=== PATIENT | female | born 1955 | race Caucasian/White ===

== ENCOUNTER 2023-03-27 18:05 | Emergency (ER) | payer SELFPAY ==
[2023-03-27 18:05] VITALS: BP 170/87; PULSE 67; RESP 18; TEMP 36.5; O2SAT 100; BMI 24.0
--- NOTE | 2023-03-27 18:12 | CTR_ITS ---
PROCEDURE INFORMATION: Exam: CT Abdomen And Pelvis With Contrast Exam date and time: 03/27/2023 6:37 PM Age: 67 years old Clinical indication: Abdominal pain; Generalized; Additional info: Abd pain TECHNIQUE: Imaging protocol: Computed tomography of the abdomen and pelvis with contrast. Radiation optimization: All CT scans at this facility use at least one of these dose optimization techniques: automated exposure control; mA and/or kV adjustment per patient size (includes targeted exams where dose is matched to clinical indication); or iterative reconstruction. Contrast material: OMNI 350; Contrast volume: 100 ml; Contrast route: INTRAVENOUS (IV); REPORTING DATA: Count of CT and Cardiac NM exams in prior 12 months: This patient has received 0 known CTs and 0 known cardiac nuclear medicine studies in the 12 months prior to the current study. COMPARISON: No relevant prior studies available. RADIATION DOSE METRICS: Total DLP (mGy-cm): 368 FINDINGS: Lungs: Dependent atelectasis in the lungs bilaterally. Pleural spaces: No pleural effusion. Heart: Visualized portions of the heart are mildly enlarged. Mediastinal space: Extensive inflammatory changes involving the distal esophagus and proximal stomach. There is also a defect in the wall of the distal esophagus just above the gastroesophageal junction with mediastinal free air with an abscess surrounding the distal esophagus measuring 2.4 x 4.0 cm (series 3, image 4). Multiple foci of air are also seen throughout the abdomen as well as diffuse moderate to severe inflammatory changes and free fluid in the abdomen and pelvis, which may be secondary in nature from the esophageal wall perforation. Liver: Two hypodense foci in the liver that cannot be further characterized on the current examination. The larger measures 8.5 mm (series 3, image 18). Gallbladder and bile ducts: The gallbladder is unremarkable. No biliary ductal dilatation. Pancreas: The pancreas is unremarkable. No pancreatic ductal dilatation. Spleen: The spleen is unremarkable. Adrenal glands: The right and left adrenal glands are unremarkable. Kidneys and ureters: Subcentimeter hypodense foci in both right and left kidneys that are too small to characterize, however likely represent small cysts. The right and left ureters are unremarkable. Stomach and bowel: See Mediastinal space finding. Appendix: The appendix is visualized and is unremarkable. No findings to suggest acute appendicitis. Intraperitoneal space: See Mediastinal space finding. Vasculature: No evidence for aortic aneurysm or aortic dissection. Hepatic veins, portal veins, splenic vein, and SMV are patent. Lymph nodes: No lymphadenopathy. Urinary bladder: The bladder is unremarkable. Reproductive: The uterus is unremarkable. Simple cyst in the right ovary measuring 2.4 x 3.2 cm (series 3, image 59). Dominant follicle in the left ovary measuring 1.8 x 2.2 cm (series 3, image 64). Bones/joints: Degenerative changes in the spine, sacroiliac joints, and hips. Soft tissues: No acute abnormality in the extra-abdominal soft tissues. CT/CT abdomen pelvis w con* [id number] IMPRESSION: 1. Findings suspicious for extensive esophagitis and gastritis with an esophageal perforation in the wall of the distal esophagus just above the gastroesophageal junction. There is also a defect in the wall of the distal esophagus just above the gastroesophageal junction with mediastinal free air and an abscess surrounding the distal esophagus. Multiple foci of air are also seen throughout the abdomen as well as diffuse moderate to severe inflammatory changes and free fluid in the abdomen and pelvis, which may be secondary in nature from the esophageal wall perforation. 2. Two hypodense foci in the liver that cannot be further characterized on the current examination. In a low-risk patient, this is most likely to be benign and no further follow-up is recommended. In a high-risk patient, follow-up MRI in 3-6 months is recommended (or earlier if warranted by the patient's specific clinical circumstances). (Reference: Dennis) 3. Simple cyst in the right ovary measuring 2.4 x 3.2 cm. 4. Dominant follicle in the left ovary measuring 1.8 x 2.2 cm. 5. Incidental/nonacute findings are listed in the report. COMMENTS: Consistent with the [employer]'s Incidental Findings Committee white paper (J Am Erich Radiol 2018): Any incidental renal lesion less than 1 cm or classified as too small to characterize, or any incidental cystic renal lesion characterized as simple-appearing, is likely benign. No follow-up imaging is recommended for these lesions per consensus recommendations based on imaging criteria. REFERENCES: Dennis JERNIGAN, et al. Management of Incidental Liver Lesions on CT: A White Paper of the ACR Incidental Findings Committee. J Am Erich Radiol. 2017;14(11):0586-6702.
--- NOTE | 2023-03-27 18:13 | W.ED.ABDPA2 ---
HPI - Abdominal Pain General: Chief Complaint: Abdominal Pain Stated Complaint: Abd pain N/V Time Seen by Provider: 03/27/23 18:08 Source: patient Mode of arrival: ambulatory Limitations: no limitations History of Present Illness: 67-year-old female states she has been having lower abdominal pain since 5:00 this morning states its worsened throughout the day states pain is sharp in nature she received 100 of fentanyl along with 80 Zofran in route states her pain is still a 7 out of 10 no history of abdominal surgeries denies any vomiting denies any diarrhea is denies any fevers. Associated Symptoms: Denies chills, diarrhea, dysuria, fever(s), nausea and vomiting Review of Systems Const: Denies: fever(s) or chills ENMT: Denies: throat pain or dental pain Card: Denies: chest pain Resp: Denies: dyspnea GI: Reports: abdominal pain; Denies: nausea, vomiting or diarrhea : Denies: dysuria Musc: Denies: neck pain or back pain Skin/Breast: Denies: rash Neuro: Denies: headache(s) Physical Exam Const: COMMON NORMALS: patient oriented x3 GENERAL APPEARANCE: in distress HENMT: COMMON NORMALS: normocephalic and atraumatic HEAD & SCALP: normocephalic and atraumatic Neck/C-Spine: COMMON NORMALS: full ROM and supple Chest: COMMONS NORMALS: normal inspection of the chest Resp: COMMON NORMALS: normal respiratory effort Cardio: COMMON NORMALS: regular rate, regular rhythm and No murmurs present (Cardio) RATE: regular rate RHYTHM: regular rhythm GI: COMMON NORMALS: Normal to inspection, nondistended, normoactive bowel sounds present and no masses PALPATION: Yes Tenderness to palpation present (GI) (diffuse) and Yes Rigid due to palpation Extremity: COMMON NORMALS: normal to inspection Neuro: COMMON NORMALS: patient oriented x3, moves all extremities and no focal motor deficits Psych: COMMON NORMALS: mental status grossly normal, Normal thought process present and cooperative THOUGHT PROCESS: Normal thought process present Skin: COMMON NORMALS: no rashes or lesions noted and no wounds GENERAL SKIN EXAM: no rashes or lesions noted Course Vital Signs: Vital signs: Vital Signs Temperature 97.7 F 03/27/23 18:05 Pulse Rate 67 03/27/23 18:05 Respiratory Rate 15 03/27/23 21:02 Blood Pressure 159/82 03/27/23 21:02 Pulse Oximetry 97 03/27/23 21:02 Oxygen Delivery Me thod Room Air 03/27/23 21:02 MDM - Abdominal Pain Medical Decision Making Patient presents here with abdominal pain CT shows esophageal perforation did start patient on antibiotics [facility] surgeon who recommended a high level care did call [facility] patient is excepted there and will transfer there at this time. Medical Records I reviewed the patient's medical records. Lab Data I reviewed the patient's lab results. 03/27/23 18:30 03/27/23 18:30 Labs/Radiology: Radiology Impressions Abdomen/Pelvis CT 03/27/23 18:12 IMPRESSION: 1. Findings suspicious for extensive esophagitis and gastritis with an esophageal perforation in the wall of the distal esophagus just above the gastroesophageal junction. There is also a defect in the wall of the distal esophagus just above the gastroesophageal junction with mediastinal free air and an abscess surrounding the distal esophagus. Multiple foci of air are also seen throughout the abdomen as well as diffuse moderate to severe inflammatory changes and free fluid in the abdomen and pelvis, which may be secondary in nature from the esophageal wall perforation. 2. Two hypodense foci in the liver that cannot be further characterized on the current examination. In a low-risk patient, this is most likely to be benign and no further follow-up is recommended. In a high-risk patient, follow-up MRI in 3-6 months is recommended (or earlier if warranted by the patient's specific clinical circumstances). (Reference: Dennis) 3. Simple cyst in the right ovary measuring 2.4 x 3.2 cm. 4. Dominant follicle in the left ovary measuring 1.8 x 2.2 cm. 5. Incidental/nonacute findings are listed in the report. COMMENTS: Consistent with the [employer]'s Incidental Findings Committee white paper (J Am Erich Radiol 2018): Any incidental renal lesion less than 1 cm or classified as too small to characterize, or any incidental cystic renal lesion characterized as simple-appearing, is likely benign. No follow-up imaging is recommended for these lesions per consensus recommendations based on imaging criteria. REFERENCES: Dennis JERNIGAN, et al. Management of Incidental Liver Lesions on CT: A White Paper of the ACR Incidental Findings Committee. J Am Erich Radiol. 2017;14(11):9501-2873. ADDENDUM: 03/27/231957 THIS REPORT CONTAINS FINDINGS THAT MAY BE CRITICAL TO PATIENT CARE. The findings were verbally communicated via telephone conference with DIANNA Moreira at 7:57 PM V[employer]UNTEER SERVICES COORDINATOR on 03/27/2023. The findings were acknowledged and understood. Laboratory Results WBC 3.88 10^3/uL (3.29-11.43) 03/27/23 18:30 RBC 4.77 10^6/uL (3.85-5.65) 03/27/23 18:30 Hgb 14.10 g/dL (11.27-16.99) 03/27/23 18:30 Hct 43.7 % (36-47) 03/27/23 18:30 MCV 91.6 fl (85-98) 03/27/23 18:30 MCH 29.6 pg (27-33) 03/27/23 18:30 MCHC 32.3 g/dL (30-55) 03/27/23 18:30 RDW 11.9 % (12.1-15.1) L 03/27/23 18:30 Plt Count 245 10^3/cmm (157-399) 03/27/23 18:30 MPV 9.4 fL (7.4-10.4) 03/27/23 18:30 Neut % (Auto) 82.4 % 03/27/23 18:30 Lymph % (Auto) 11.3 % 03/27/23 18:30 [place] % (Auto) 5.7 % 03/27/23 18:30 Eos % (Auto) 0.3 % 03/27/23 18:30 Baso % (Auto) 0.3 % 03/27/23 18:30 Neut # (Auto) 3.20 10^3/uL (1.8-7.7) 03/27/23 18:30 Lymph # (Auto) 0.4 10^3/uL (0.8-4.8) L 03/27/23 18:30 [place] # (Auto) 0.2 10^3/uL (0.2-0.9) 03/27/23 18:30 Eos # (Auto) 0.0 10^3/uL (0.0-0.8) 03/27/23 18:30 Baso # (Auto) 0.0 10^3/uL (0.0-0.1) 03/27/23 18:30 Nucleated RBC % (auto) 0 % 03/27/23 18: Nucleated RBCs # 0.0 /100WBC 03/27/23 18:30 Sodium 144 mmol/L (136-145) 03/27/23 18:30 Potassium 4.1 mmol/L (3.5-5.1) 03/27/23 18:30 Chloride 110 mmol/L (98-107) H 03/27/23 18:30 Carbon Dioxide 22 mmol/L (22-29) 03/27/23 18:30 Anion Gap 16.1 (5-19) 03/27/23 18:30 BUN 11 mg/dL (8-23) 03/27/23 18:30 Creatinine 0.7 mg/dL (0.5-0.9) 03/27/23 18:30 GFR Calculation 84.0 mL/min (90-130) L 03/27/23 18:30 Glucose 152 mg/dL (65-115) H 03/27/23 18:30 Calculated Osmolality 300 mOsm/kg (285-295) H 03/27/23 18:30 Lactic Acid 2.9 mmol/L (0.5-2.2) H 03/27/23 18:30 Calcium 8.3 mg/dL (8.5-10.5) L 03/27/23 18:30 Total Bilirubin 0.9 mg/dL (0.15-1.2) 03/27/23 18:30 AST 18 U/L (0-32) 03/27/23 18:30 ALT 9 U/L (0-33) 03/27/23 18:30 Alkaline Phosphatase 72 U/L (35-105) 03/27/23 18:30 Total Protein 5.7 g/dL (6.6-8.7) L 03/27/23 18:30 Albumin 3.5 g/dL (3.5-5.2) 03/27/23 18:30 Globulin 2.2 g/dL (1.3-4.6) 03/27/23 18:30 Lipase 11 U/L (13-60) L 03/27/23 18:30 Urine Color Dark yellow (Yellow) 03/27/23 19:28 Urine Appearance Clear (CLEAR) 03/27/23 19:28 Urine pH 7 (5-7) 03/27/23 19:28 Ur Specific [place] 1.005 (1.005-1.030) 03/27/23 19:28 Urine Protein Neg (Negative) 03/27/23 19:28 Urine Glucose (UA) Norm (Normal) 03/27/23 19:28 Urine Ketones 1+ (Negative) H 03/27/23 19:28 Urine Blood Neg (Negative) 03/27/23 19:28 Urine Nitrate Negative (Negative) 03/27/23 19:28 Urine Bilirubin Neg (Negative) 03/27/23 19:28 Urine Urobilinogen Norm mg/dL (Negative) 03/27/23 19:28 Ur Leukocyte Esterase Negative (Negative) 03/27/23 19:28 All radiology interpretation(s) finalized by discharge Critical Care Time Critical Care Time: Critical Care Time: Yes Total Critical Care Time: 45 Attestation: The high probability of a clinically significant, sudden or life threatening deterioration of the patient's gi system(s) required my full and direct attention, intervention and personal management. The critical care time is as shown. This time is in addition to time spent performing any reported procedures but includes the following: [x] Data and vital sign review and interpretation [x] Patient assessment, examination and intervention [x] Documentation [x] Medication orders and management Discharge Plan Discharge Patient Disposition: Xfer Short-Term Hosp Clinical Impression: Esophageal perforation Condition: Stable Coding Level of Care Code ED [employer] for [employer]
[2023-03-27 18:16] VITALS: O2SAT 97
[2023-03-27 18:32] VITALS: RESP 18; O2SAT 98
[2023-03-27] MEDS: HYDROmorphone 1 mg/mL INJ 1 mL IVP ×2 (18:32→22:07)
[2023-03-27] MEDS: sodium chloride 0.9% 1,000 ML 999 ML IV ×2 (18:33→22:07)
[2023-03-27] MEDS: iohexol 350 mg/mL 500 mL Btl (per mL) IV (18:39)
[2023-03-27 18:56] LABS: Basophils % 0.3 %; Eosinophils % 0.3 %; Hematocrit 43.7 % (36-47); Lymphocytes # 0.4 10^3/uL (0.8-4.8); Lymphocytes % 11.3 %; Mean Corpuscular HGB Conc 32.3 g/dL (30-55); Mean Corpuscular Hemoglobin 29.6 pg (27-33); Mean Corpuscular Volume 91.6 fl (85-98); Mean Platelet Volume 9.4 fL (7.4-10.4); Monocytes # 0.2 10^3/uL (0.2-0.9); Monocytes % 5.7 %; Neutrophils % 82.4 %; Nucleated Red Blood Cells % 0 %; Platelet Count 245 10^3/cmm (157-399); Red Blood Count 4.77 10^6/uL (3.85-5.65); Red Cell Distribution Width 11.9 % (12.1-15.1); White Blood Count 3.88 10^3/uL (3.29-11.43)
[2023-03-27 19:14] LABS: Alanine Aminotransferase 9 U/L (0-33); Albumin Level 3.5 g/dL (3.5-5.2); Alkaline Phosphatase 72 U/L (35-105); Aspartate Amino Transferase 18 U/L (0-32); Blood Urea Nitrogen 11 mg/dL (8-23); Calcium 8.3 mg/dL (8.5-10.5); Carbon Dioxide 22 mmol/L (22-29); Chloride 110 mmol/L (98-107); Creatinine Clr Calc Pharmacy 64.4375; Globulin 2.2 g/dL (1.3-4.6); Glucose 152 mg/dL (65-115); Lipase 11 U/L (13-60); Osmolality Calculated 300 mOsm/kg (285-295); Sodium 144 mmol/L (136-145); Total Bilirubin 0.9 mg/dL (0.15-1.2); Total Protein 5.7 g/dL (6.6-8.7)
[2023-03-27 19:17] LABS: Anion Gap 16.1 (5-19); Potassium 4.1 mmol/L (3.5-5.1)
[2023-03-27 19:27] LABS: Lactic Sepsis W/Reflex 2.9 mmol/L (0.5-2.2)
[2023-03-27 19:38] LABS: Add Urine Microscopic? NO; Charge for UA Resulting for Rev
[2023-03-27 19:43] LABS: Bilirubin Urine Neg (Negative); Blood Urine Neg (Negative); Glucose Urine UA Norm (Normal); Ketones Urine 1+ (Negative); Leukocyte Esterase Urine Negative (Negative); Nitrate Urine Negative (Negative); Protein Urine Neg (Negative); Specific Gravity, Urine 1.005 (1.005-1.030); Urine Appearance Clear (CLEAR); Urine Color Dark Yellow (Yellow); Urobilinogen Urine Norm (Negative); pH Urine 7 (5-7)
[2023-03-27] MEDS: piperacillin-tazobactam 3.375 GM in sodium chloride 0.9% (plus) 50 ML IV (20:24)
[2023-03-27] MEDS: pantoprazole 40 mg SDV 80 MG IVP (20:25)
[2023-03-27 20:38] LABS: Reflex Lactate Order REFLEX LACTIC ORDERD
[2023-03-27 21:02] VITALS: BP 159/82; RESP 15; O2SAT 97
[2023-03-27] MEDS: vancomycin 1,000 MG in sodium chloride 0.9% 250 ML 250 MG IV (21:03)
--- NOTE | 2023-03-27 21:45 | PC.NURSE ---
report called to Siomara Estrella RN. at in [place].
[2023-03-27 22:07] VITALS: RESP 15; O2SAT 98
[2023-03-27] MEDS: sodium chloride 0.9% 1,000 ML 150 ML IV (22:07)
[2023-03-27 22:15] LABS: Lactic Acid level (Lactate) 2.7 mmol/L (0.5-2.2)
--- NOTE | 2023-03-27 22:23 | PC.NURSE ---
pt report given to [facility]. pt left facility at approx [phone]
[2023-03-27 22:27] VITALS: PULSE 65; RESP 15; O2SAT 98
== END 2023-03-27 22:33 | disposition short-term general hospital (02) ==
PROVIDERS: Emergency Provider Emergency Medicine
DX: K22.3 Perforation of esophagus (principal); N83.291 Other ovarian cyst, right side
CPT/HCPCS: 36415; 74177; 80053; 81003; 83605; 83690; 85025; 96365; 96367; 96375; 96376; 99285; C9113; J1170; J2543; J3370; J7030; J7050; Q9967